=== PATIENT | female | born 1940 | race Caucasian/White ===

== ENCOUNTER 2019-11-05 08:00 | Outpatient (CLI) | payer MEDICARE, MEDICAID | END 2019-11-05 08:01 | disposition home or self-care (01) | LOC: PRE-OP 08:00 → EDSTATUS 11-27 13:15 | PROVIDERS: ATTEND Surgery | DX: K43.9 Ventral hernia without obstruction or gangrene (principal); Z53.21 Procedure and treatment not carried out due to patient leaving prior to being seen by health care provider ==

== ENCOUNTER 2019-12-18 07:32 | Inpatient (IN) | payer MEDICARE, MEDICAID ==
[2019-12-12 12:11] LABS: CLARITY,URINE CLEAR (Clear); COLOR,URINE YELLOW (Yellow); GLUCOSE, URINE NEGATIVE (Neg); KETONES,URINE NEGATIVE (Neg); LEUKOCYTE ESTERASE ,URINE NEGATIVE (Neg); NITRITES, URINE NEGATIVE (Neg); OCCULT BLOOD,URINE MODERATE (Neg); PH,URINE 6.5 (4.8-8.0); PROTEIN,URINE NEGATIVE (Neg); UROBILINOGEN,URINE 0.2 E.U/dL (0.2-1.0)
[2019-12-12 12:12] LABS: BASOPHILS # (AUTO) 0.1 X10'3 (0-0.2); BASOPHILS % (AUTO) 1.2 % (0-1); EOSINOPHILS # (AUTO) 0.1 X10'3 (0-0.9); LYMPHOCYTES # (AUTO) 0.9 X10'3 (1.1-4.8); LYMPHOCYTES % (AUTO) 17.7 % (21-51); MEAN CORPUSCULAR HEMOGLOBIN 29.4 PG (27.0-31.0); MEAN CORPUSCULAR HGB CONC 33.1 g/dL (33.0-36.5); MEAN CORPUSCULAR VOLUME 88.9 FL (78-98); MEAN PLATELET VOLUME 8.6 FL (7.4-10.4); MONOCYTES # (AUTO) 0.5 X10'3 (0-0.9); MONOCYTES % (AUTO) 8.8 % (2-12); NEUTROPHILS # (AUTO) 3.7 X10'3 (1.8-7.7); NEUTROPHILS % (AUTO) 70.3 % (42-75); PRE OP HEMATOCRIT 42.7 % (35.0-45.0); PRE OP HEMOGLOBIN 14.1 g/dL (12.0-16.0); PRE OP PLATELET COUNT 131 X10'3 (140-440); RED CELL DISTRIBUTION WIDTH 15.9 % (11.5-14.5)
[2019-12-12 12:14] LABS: UA COLLECTION TYPE NON-SPECIFIED
[2019-12-12 12:20] LABS: SQUAMOUS EPITHELIAL CELL,UR FEW /LPF (FEW)
[2019-12-12 12:21] LABS: BACTERIA,URINE FEW /HPF (Neg); WBC,URINE 0-4 /HPF (0-4)
[2019-12-12 12:26] LABS: ALBUMIN 3.3 G/DL (3.4-5.0); ALBUMIN/GLOBULIN RATIO 0.9 (1.1-1.5); ALKALINE PHOSPHATASE 85 IU/L (46-116); BLOOD UREA NITROGEN 13 MG/DL (7-18); BUN/CREATININE RATIO 19.1 (6.6-38.0); CALCIUM 9.4 MG/DL (8.5-10.1); CHLORIDE 105 MMOL/L (99-107); CREATININE 0.68 MG/DL (0.40-0.90); PRE OP ALT 20 U/L (30-65); PRE OP ANION GAP 4 (8-16); PRE OP AST 26 U/L (10-37); PRE OP BILIRUB, TOTAL 0.9 MG/DL (0.0-1.0); PRE OP GLUCOSE 70 MG/DL (70-104); PRE OP POTASSIUM 3.8 MMOL/L (3.4-5.1); PRE OP SODIUM 140 MMOL/L (135-145); TOTAL CARBON DIOXIDE 30.9 MMOL/L (24-32); TOTAL PROTEIN 7.1 G/DL (6.4-8.2); eGFR 84 ML/MIN
[2019-12-18] VITALS (33 sets, daily range): BP systolic 108–151; BP diastolic 51–81
[~2019-12-18] VITALS: Ht 162.6 cm; Wt 72.2 kg
[~2019-12-18 07:32] MED LIST: ACET-1025 PO; ALBU18HF2 PO; MONT10TA26 PO; albuterol 2.5 MG/3 ML nebule NEB ONE; cefazolin/dext.iso 2gm/50ml 50 ML IV ONE; famotidine 20mg tablet PO ONE
[2019-12-18] MEDS: ringers solution, lacted 1,000 ML IV SCH (08:56)
[2019-12-18] MEDS ORDERED: ringers solution, lacted 1,000 ML IV SCH (09:34)
[2019-12-18] MEDS ORDERED: proCHLORperazine 10 MG/2 ml inj IV PRN (09:35)
[2019-12-18] MEDS ORDERED: meperidine/PF 25mg/ml syringe IV PRN ×3 (09:35)
[2019-12-18] MEDS ORDERED: ondansetron/PF 4mg/2ml inj IV PRN (09:35)
[2019-12-18] MEDS ORDERED: ceFAZolin 1000mg inj ONE (10:24)
[2019-12-18] MEDS ORDERED: BUPIVAcaine/PF 2.5 mg/ml (0.25%) 30ml vial ONE (10:24)
[2019-12-18] MEDS ORDERED: fentaNYL/PF 50MCG/1 ML 2ML syringe ONE (10:47)
[2019-12-18] MEDS ORDERED: midazolam 2 mg/2 ml injection ONE (10:47)
[2019-12-18] MEDS ORDERED: LIDOcaine 2% (20mg/ml) 5ml vial ONE (10:50)
[2019-12-18] MEDS ORDERED: propofol inj 20 ML IV ONE (10:50)
[2019-12-18] MEDS ORDERED: rocuronium 10mg/ml inj IV ONE (11:04)
[2019-12-18] MEDS ORDERED: morphine 4 MG/ML inj SYRINge ONE (11:26)
[2019-12-18] MEDS ORDERED: acetaminophen 1,000mg/100ml IV 100 ML IV ONE (11:39)
[2019-12-18] MEDS ORDERED: neostigmine methylsulfate 1 MG/ML 10ml vial ONE (12:13)
[2019-12-18] MEDS ORDERED: glycopyrrolate 0.2mg/ml inj ONE (12:14)
[2019-12-18] MEDS ORDERED: CADD PCA waste documentation MC PRN (12:15)
[2019-12-18] MEDS ORDERED: naloxone 0.4 mg/ml inj IV PRN (12:15)
--- NOTE | 2019-12-18 12:28 | NUR ---
Received from OR via BED, accompanied by Anesthesiologist DR COLLINS and report given by Anesthesiologist. PT DROWSY, DENIES PAIN, ABDOMEN W/MIDLINE INCISION W/ISLAND DRSG W/SMALL AMT OF BLOODY DRAINAGE. Addendum: 12/18/19 at 1302 by Meena Baer RN Amended: Links added.
[2019-12-18] MEDS ORDERED: meperidine/PF 25mg/ml syringe ONE (13:15)
[2019-12-18] MEDS: HYDROmorphone/NS 1 mg/ml CADD 50 ML IV SCH ×7 (13:28→23:00)
--- NOTE | 2019-12-18 14:18 | NUR ---
Report called to receiving nurse. Transferred PT IN STABLE CONDITION via BED, 2 BAGS OF Belongings [facility] RECEIVING RN AT BEDSIDE TO RECEIVE PT, BLL, CALL LIGHT GIVEN, SIDE RAILS UP X 2. Special Issues communicated to receiving nurse. YES. Addendum: 12/18/19 at 1433 by Meena Baer RN Amended: Links added.
[2019-12-18] MEDS ORDERED: acetaminophen 325mg tablet PO PRN (14:40)
--- NOTE | 2019-12-18 14:45 | NUR ---
Received report from Melissa OSWALD. Pt arrived to room 354C. VSS. Abdomen soft, lap sites CDI.
--- NOTE | 2019-12-18 18:30 | NUR ---
Problems reprioritized. Patient report given, questions answered & plan of care reviewed with Ernesto OSWALD.
--- NOTE | 2019-12-18 18:35 | NUR ---
Patient in room [facility] 354. I have received report from FRANTZ OSWALD and had the opportunity to ask questions and assume patient care.
[2019-12-18] MEDS: montelukast 10mg tablet PO SCH (22:24)
[2019-12-19] VITALS: BP 121/68
[2019-12-19] MEDS: ringers solution, lacted 1,000 ML IV SCH (00:44)
[2019-12-19] MEDS: ondansetron/PF 4mg/2ml inj IV PRN ×2 (00:51→22:17)
[2019-12-19] MEDS: HYDROmorphone/NS 1 mg/ml CADD 50 ML IV SCH ×12 (01:00→23:00)
[2019-12-19 06:06] LABS: BASOPHILS % (AUTO) 0.1 % (0-1); EOSINOPHILS % (AUTO) 0 % (0-6); HEMATOCRIT 45.1 % (35.0-45.0); HEMOGLOBIN 14.8 g/dl (12.0-16.0); LYMPHOCYTES # (AUTO) 0.5 X10'3 (1.1-4.8); LYMPHOCYTES % (AUTO) 4.4 % (21-51); MEAN CORPUSCULAR HEMOGLOBIN 29.7 PG (27.0-31.0); MEAN CORPUSCULAR HGB CONC 32.8 g/dL (33.0-36.5); MEAN CORPUSCULAR VOLUME 90.5 FL (78-98); MEAN PLATELET VOLUME 8.9 FL (7.4-10.4); MONOCYTES # (AUTO) 0.6 X10'3 (0-0.9); MONOCYTES % (AUTO) 5.7 % (2-12); NEUTROPHILS # (AUTO) 9.5 X10'3 (1.8-7.7); NEUTROPHILS % (AUTO) 89.8 % (42-75); PLATELET COUNT 115 X10'3 (140-440); RED BLOOD COUNT 4.98 X10'6 (4.20-5.60); RED CELL DISTRIBUTION WIDTH 15.9 % (11.5-14.5); WHITE BLOOD COUNT 10.5 X10'3 (4.5-11.0)
--- NOTE | 2019-12-19 06:30 | NUR ---
Problems reprioritized. Patient report given, questions answered & plan of care reviewed with BETO OSWALD.
[2019-12-19 08:00] VITALS: BP 123/63
[2019-12-19] MEDS: albuterol 2.5 MG/3 ML nebule NEB PRN ×2 (08:06→21:46)
[2019-12-19 11:00] VITALS: BP 118/52
--- NOTE | 2019-12-19 18:16 | NUR ---
Problems reprioritized. Patient report given, questions answered & plan of care reviewed with ALLA GOLD RN.
--- NOTE | 2019-12-19 18:30 | NUR ---
Patient in room [facility]. I have received report from BETO OSWALD and had the opportunity to ask questions and assume patient care.
[2019-12-19 19:00] VITALS: BP 126/62
[2019-12-19] MEDS: montelukast 10mg tablet PO SCH (21:28)
[2019-12-20] VITALS: BP 112/51
[2019-12-20] MEDS: HYDROmorphone/NS 1 mg/ml CADD 50 ML IV SCH ×7 (01:00→13:00)
[2019-12-20] MEDS: ringers solution, lacted 1,000 ML IV SCH (05:17)
[2019-12-20 06:11] LABS: BASOPHILS % (AUTO) 0.4 % (0-1); EOSINOPHILS % (AUTO) 0.2 % (0-6); HEMATOCRIT 37.1 % (35.0-45.0); HEMOGLOBIN 12.5 g/dl (12.0-16.0); LYMPHOCYTES # (AUTO) 1.2 X10'3 (1.1-4.8); LYMPHOCYTES % (AUTO) 11.3 % (21-51); MEAN CORPUSCULAR HEMOGLOBIN 29.9 PG (27.0-31.0); MEAN CORPUSCULAR HGB CONC 33.6 g/dL (33.0-36.5); MEAN CORPUSCULAR VOLUME 89.1 FL (78-98); MEAN PLATELET VOLUME 8.3 FL (7.4-10.4); MONOCYTES # (AUTO) 0.8 X10'3 (0-0.9); MONOCYTES % (AUTO) 7.9 % (2-12); NEUTROPHILS # (AUTO) 8.4 X10'3 (1.8-7.7); NEUTROPHILS % (AUTO) 80.2 % (42-75); PLATELET COUNT 163 X10'3 (140-440); RED BLOOD COUNT 4.16 X10'6 (4.20-5.60); RED CELL DISTRIBUTION WIDTH 15.6 % (11.5-14.5); WHITE BLOOD COUNT 10.5 X10'3 (4.5-11.0)
--- NOTE | 2019-12-20 06:30 | NUR ---
Problems reprioritized. Patient report given, questions answered & plan of care reviewed with ALLIE OSWALD.
[2019-12-20 07:00] VITALS: BP 122/50
--- NOTE | 2019-12-20 07:09 | NUR ---
Patient in room [facility] 354. I have received report from Perla Duncan RN and had the opportunity to ask questions and assume patient care.
[2019-12-20] MEDS: albuterol 2.5 MG/3 ML nebule NEB PRN ×3 (09:43→20:51)
[2019-12-20 11:00] VITALS: BP 106/46
[2019-12-20] MEDS: HYDROcodone/acetaminophen 5mg/325mg tablet PO PRN ×2 (13:41→20:50)
--- NOTE | 2019-12-20 17:53 | NUR ---
Patient woke up from a nap and was hallucinating. Patient was very upset and said that she is going home. Patient also stated " my boss wants me to come in" I advised patient she was in the hospital. Patients IV infiltrated and was S/L at this time. Patient started to calm down we were able to get patient back into bed. Patients bed alarm on rails up x3 anti skid socks on. Patient started to clear after being placed back on oxygen her O2 sats were 88 after being placed on oxygen. Patient admitted to [facility] that she might have been hallucinating and that she was sorry. Will continue to monitor patient.
[2019-12-20 18:00] VITALS: BP 121/56
--- NOTE | 2019-12-20 18:56 | NUR ---
Tried to call Dr Elizabeth regarding getting just tylenol for pain on patient and patients IV infiltrated patient does not want a new IV. Dr Elizabeth voicemail not set up yet.
--- NOTE | 2019-12-20 18:58 | NUR ---
Problems reprioritized. Patient report given, questions answered & plan of care reviewed with Nhung OSWALD.
[2019-12-20] MEDS: montelukast 10mg tablet PO SCH (20:45)
[2019-12-21] VITALS: BP 120/64
[2019-12-21] MEDS: HYDROcodone/acetaminophen 5mg/325mg tablet PO PRN ×2 (04:04→12:16)
[2019-12-21 05:51] LABS: BASOPHILS % (AUTO) 0.4 % (0-1); EOSINOPHILS # (AUTO) 0.1 X10'3 (0-0.9); HEMATOCRIT 34.9 % (35.0-45.0); HEMOGLOBIN 11.6 g/dl (12.0-16.0); LYMPHOCYTES # (AUTO) 0.6 X10'3 (1.1-4.8); MEAN CORPUSCULAR HEMOGLOBIN 29.6 PG (27.0-31.0); MEAN CORPUSCULAR HGB CONC 33.3 g/dL (33.0-36.5); MEAN CORPUSCULAR VOLUME 88.7 FL (78-98); MEAN PLATELET VOLUME 8.3 FL (7.4-10.4); MONOCYTES # (AUTO) 0.5 X10'3 (0-0.9); MONOCYTES % (AUTO) 10.1 % (2-12); NEUTROPHILS % (AUTO) 77.5 % (42-75); PLATELET COUNT 100 X10'3 (140-440); RED BLOOD COUNT 3.94 X10'6 (4.20-5.60); RED CELL DISTRIBUTION WIDTH 15.4 % (11.5-14.5); WHITE BLOOD COUNT 5.1 X10'3 (4.5-11.0)
--- NOTE | 2019-12-21 06:26 | NUR ---
Problems reprioritized. Patient report given, questions answered & plan of care reviewed with MARGRET Galeano.
--- NOTE | 2019-12-21 06:33 | NUR ---
Patient in room [facility] 354. I have received report from MARGRET HUNTER and had the opportunity to ask questions and assume patient care.
[2019-12-21 08:14] VITALS: BP 110/55
--- NOTE | 2019-12-21 10:04 | NUR ---
Patient's bathroom call light on. Found patient standing in bathroom with hands on abdomen with approximately 200 ml red blood pooled on floor and surgical incision site dressing saturated. Patient states she noticed the blood draining from surgical site when she was getting off the toilet. Assisted patient back to bed and placed in lying position. Patient's incision site helena intact, wound well approximated. Applied pressure to incisional site and no further bloody drainage from site. Incision re-dressed with 4x4 gauze, ABD dressing and secured with foam tape. VSS 97.9. 77, 18, 94% 2LNC, 125/59. Dr Orozco notified. Received no new orders. Will continue to monitor.
[2019-12-21 12:31] VITALS: BP 112/60
[2019-12-21] MEDS: albuterol 2.5 MG/3 ML nebule NEB PRN (14:46)
[2019-12-21 18:00] VITALS: BP 101/42
--- NOTE | 2019-12-21 18:20 | NUR ---
Patient in room [facility]. I have received report from Waleska OSWALD and had the opportunity to ask questions and assume patient care.
--- NOTE | 2019-12-21 18:24 | NUR ---
Problems reprioritized. Patient report given, questions answered & plan of care reviewed with MARGRET Ibanez.
[2019-12-21] MEDS: magnesium hydroxide 30ml (MOM) UD suspension PO SCH (20:04)
[2019-12-21] MEDS: montelukast 10mg tablet PO SCH (20:05)
--- NOTE | 2019-12-22 00:24 | NUR ---
pt refused vital signs to be taken. educated pt. will continue to monitor
[2019-12-22] MEDS: HYDROcodone/acetaminophen 5mg/325mg tablet PO PRN ×3 (01:16→20:21)
[2019-12-22 04:00] VITALS: BP 95/49
[2019-12-22 05:55] LABS: BASOPHILS % (AUTO) 0.8 % (0-1); EOSINOPHILS # (AUTO) 0.1 X10'3 (0-0.9); EOSINOPHILS % (AUTO) 1.9 % (0-6); HEMATOCRIT 36.8 % (35.0-45.0); HEMOGLOBIN 12.2 g/dl (12.0-16.0); LYMPHOCYTES # (AUTO) 0.6 X10'3 (1.1-4.8); LYMPHOCYTES % (AUTO) 13.9 % (21-51); MEAN CORPUSCULAR HEMOGLOBIN 29.4 PG (27.0-31.0); MEAN CORPUSCULAR HGB CONC 33.1 g/dL (33.0-36.5); MEAN CORPUSCULAR VOLUME 88.8 FL (78-98); MEAN PLATELET VOLUME 8.5 FL (7.4-10.4); MONOCYTES # (AUTO) 0.5 X10'3 (0-0.9); MONOCYTES % (AUTO) 11.6 % (2-12); NEUTROPHILS # (AUTO) 3.3 X10'3 (1.8-7.7); NEUTROPHILS % (AUTO) 71.8 % (42-75); PLATELET COUNT 117 X10'3 (140-440); RED BLOOD COUNT 4.14 X10'6 (4.20-5.60); RED CELL DISTRIBUTION WIDTH 15.4 % (11.5-14.5); WHITE BLOOD COUNT 4.7 X10'3 (4.5-11.0)
--- NOTE | 2019-12-22 06:32 | NUR ---
Problems reprioritized. Patient report given, questions answered & plan of care reviewed with Justyna OSWALD.
--- NOTE | 2019-12-22 06:34 | NUR ---
Patient in room [facility]. I have received report from Marcelle OSWALD and had the opportunity to ask questions and assume patient care.
[2019-12-22 07:00] VITALS: BP 123/53
[2019-12-22] MEDS: magnesium hydroxide 30ml (MOM) UD suspension PO SCH ×2 (07:47→20:21)
[2019-12-22] MEDS: albuterol 2.5 MG/3 ML nebule NEB PRN (10:22)
[2019-12-22 11:00] VITALS: BP 104/80
--- NOTE | 2019-12-22 11:21 | NUR ---
Dressing changed very soiled when first assessed patient with sero sang drainage. medicated with [place] for pain 04/16. will continue to monitor
--- NOTE | 2019-12-22 15:51 | NUR ---
patient seen by Dr gorman, surgical incision still leaking. serosang observed by dr gorman, no new orders . to carry on changing dressing prn. have changed three times so far. patient ambulated 150ft. will continue to monitor.
--- NOTE | 2019-12-22 17:55 | NUR ---
patient on BSC attempting to have BM at this time. report given to Ericka Cornejo RN
[2019-12-22 19:35] VITALS: BP 120/50
[2019-12-22] MEDS: montelukast 10mg tablet PO SCH (20:21)
--- NOTE | 2019-12-22 20:23 | NUR ---
DRESSING TO MIDLINE CHANGED.
[2019-12-22 23:18] VITALS: BP 104/47
[2019-12-23] MEDS: HYDROcodone/acetaminophen 5mg/325mg tablet PO PRN ×4 (03:03→23:07)
[2019-12-23 05:22] LABS: BASOPHILS # (AUTO) 0.1 X10'3 (0-0.2); BASOPHILS % (AUTO) 1.1 % (0-1); EOSINOPHILS # (AUTO) 0.2 X10'3 (0-0.9); EOSINOPHILS % (AUTO) 2.7 % (0-6); HEMATOCRIT 37.1 % (35.0-45.0); HEMOGLOBIN 12.3 g/dl (12.0-16.0); LYMPHOCYTES # (AUTO) 0.7 X10'3 (1.1-4.8); LYMPHOCYTES % (AUTO) 12.1 % (21-51); MEAN CORPUSCULAR HEMOGLOBIN 29.5 PG (27.0-31.0); MEAN CORPUSCULAR HGB CONC 33.1 g/dL (33.0-36.5); MEAN CORPUSCULAR VOLUME 89.4 FL (78-98); MEAN PLATELET VOLUME 8.5 FL (7.4-10.4); MONOCYTES # (AUTO) 0.7 X10'3 (0-0.9); MONOCYTES % (AUTO) 12.4 % (2-12); NEUTROPHILS % (AUTO) 71.7 % (42-75); PLATELET COUNT 132 X10'3 (140-440); RED BLOOD COUNT 4.15 X10'6 (4.20-5.60); RED CELL DISTRIBUTION WIDTH 15.3 % (11.5-14.5); WHITE BLOOD COUNT 5.5 X10'3 (4.5-11.0)
--- NOTE | 2019-12-23 06:01 | NUR ---
Dressing to abdomen changed.
--- NOTE | 2019-12-23 06:28 | NUR ---
Problems reprioritized. Patient report given, questions answered & plan of care reviewed with MARGRET Jansen.
--- NOTE | 2019-12-23 06:37 | NUR ---
Patient in room [facility]. I have received report from Ericka OSWALD and had the opportunity to ask questions and assume patient care.
[2019-12-23 07:00] VITALS: BP 118/49
[2019-12-23] MEDS: magnesium hydroxide 30ml (MOM) UD suspension PO SCH ×2 (07:59→20:00)
[2019-12-23] MEDS: albuterol 2.5 MG/3 ML nebule NEB PRN ×2 (09:38→15:56)
[2019-12-23 11:00] VITALS: BP 99/43
--- NOTE | 2019-12-23 15:22 | NUR ---
Patient is s/p open repair incarcerated hernia 12/17; diet advanced 12/19 to regular and to mechanical soft 12/20 d/t no teeth. PO intake is fair, eating average of 25-49% however is improving to 50-75% today. Last BM 12/22. Met patient at bedside, reports appetite is always low after surgeries; obtained food preferences including peach yogurt, no beef, no pork d/w dietary. Encouraged patient to each for better healing. Will follow. Recommend 1. continue mechanical soft diet 2. send peach yogurt with dinner 3. prn bowel care 4. wt per rx Addendum: 12/23/19 at [address] Amended: Links added.
--- NOTE | 2019-12-23 17:48 | NUR ---
patient required much encouragement to ambulate. patient compliant and ambulated 300ft with rehab walker. medicated x2 with [place] for pain 04/16, with effect. surgical incision to abdomen seen by Dr Vyas, is for CT in am. NPO after midnight. Abdominal wound changed x3. patient had BM x3, soft/loose. Appears comfortable at time of report.
--- NOTE | 2019-12-23 18:20 | NUR ---
Patient in room [facility]. I have received report from Justyna OSWALD and had the opportunity to ask questions and assume patient care.
--- NOTE | 2019-12-23 18:49 | NUR ---
Problems reprioritized. Patient report given, questions answered & plan of care reviewed with Marianna parr.
[2019-12-23 20:00] VITALS: BP 113/56
[2019-12-23] MEDS: montelukast 10mg tablet PO SCH (23:07)
[2019-12-24] VITALS: BP 127/50
--- NOTE | 2019-12-24 06:20 | NUR ---
Problems reprioritized. Patient report given, questions answered & plan of care reviewed with Cherelle OSWALD.
[2019-12-24 07:00] VITALS: BP 122/65
[2019-12-24] MEDS: magnesium hydroxide 30ml (MOM) UD suspension PO SCH (08:00)
--- NOTE | 2019-12-24 09:00 | NUR ---
Patient off the unit for CT
--- NOTE | 2019-12-24 09:30 | NUR ---
Patient returned from CT, PT in with patient.
--- NOTE | 2019-12-24 09:52 | NUR ---
Requested RT for patient, states she is having an Asthma attack.
[2019-12-24] MEDS: albuterol 2.5 MG/3 ML nebule NEB PRN (10:03)
[2019-12-24] MEDS: HYDROcodone/acetaminophen 5mg/325mg tablet PO PRN (10:34)
--- NOTE | 2019-12-24 13:30 | NUR ---
Patient discharged on nursing end, patient has signed discharge paper, received education, provided wound care supplies. Patient is waiting on her ride that is coming from [place].
--- NOTE | 2019-12-26 12:24 | NUR ---
Case Management DC follow up: Spoke to pt via telephone. s/p: hernia repair, partial JENELLE. Reports: feeling, "not too bad" ambulating independently w/o [facility] assist. Surg site audrey RODRIGUES. Denies: SOB, resp distress, acute/persistent CP, RICE, blurry vision, N/V, emergent general pain, abd tenderness above what is expected or distention, vertigo, syncope, fever, unexplained bruising, bleeding. Verbalizes understanding of s/s that would warrant 9-11/ER visit for further evaluation. Verbalizes understanding of current/new Rx Jerome & why prescribed; taking as ordered, no ase noted r/t polypharmacy. Acknowledges need to follow-up/keep appts w/PCP in [place], Will follow up w/Dr Elizabeth as scheduled. verbalizes understanding and compliance of after care protocol. Questions answered, needs met at DC. No further questions at this time.
== END 2019-12-24 14:58 | disposition home or self-care (01) | DRG 336 ==
LOC: PAS 07:32 → SUR 3N 12:15
PROVIDERS: ADMIT Surgery; ATTEND Surgery
PROC: 0WUF0JZ Supplement Abdominal Wall with Synthetic Substitute, Open Approach (ICD-10-PCS; principal; 2019-12-19)
PROC: 0DN80ZZ Release Small Intestine, Open Approach (ICD-10-PCS; 2019-12-19)
PROC: 0WJF4ZZ Inspection of Abdominal Wall, Percutaneous Endoscopic Approach (ICD-10-PCS; 2019-12-19)
DX: K43.0 Incisional hernia with obstruction, without gangrene (principal); K56.51 Intestinal adhesions [bands], with partial obstruction; K56.7 Ileus, unspecified; E11.9 Type 2 diabetes mellitus without complications; I71.2 Thoracic aortic aneurysm, without rupture; J44.9 Chronic obstructive pulmonary disease, unspecified; F32.9 Major depressive disorder, single episode, unspecified; G43.909 Migraine, unspecified, not intractable, without status migrainosus; M19.90 Unspecified osteoarthritis, unspecified site; M79.7 Fibromyalgia; Z87.891 Personal history of nicotine dependence; Z90.49 Acquired absence of other specified parts of digestive tract; Z93.3 Colostomy status; Z53.31 Laparoscopic surgical procedure converted to open procedure; Z98.51 Tubal ligation status; Z88.5 Allergy status to narcotic agent
CPT/HCPCS: 36415; 74176; 80053; 81001; 82948; 85025; 87081; 87635; 93005; 94640; 94760; 97530; A4215; A4618; A7000; C1758; G0378; J0131; J0690; J1170; J2001; J2175; J2250; J2270; J2405; J2704; J2710; J3010; J3490; J7120